=== PATIENT | male | born 1960 | race Caucasian/White ===

== ENCOUNTER 2019-08-31 08:35 | Inpatient (IN) | payer OTHER ==
[2019-08-31] MEDS ORDERED: SODIUM CHLORIDE 0.9% 1,000 ML IV STA (08:54)
[2019-08-31 09:16] LABS: Basophils # (A) 0.1 k/uL (0-0.2); Basophils % (A) 1 %; Eosinophils # (A) 0.1 k/uL (0-0.7); Eosinophils % (A) 1 %; HCT 42.9 % (39.0-53.0); HGB 14.2 gm/dL (13.0-17.5); Lymphocytes # (A) 1.6 k/uL (1.0-4.8); Lymphocytes % (A) 20 %; MCH 30.4 pg (25.0-35.0); Mean Platelet Volume 7.3; Monocytes # (A) 0.5 k/uL (0-1.0); Monocytes % (A) 7 %; Neutrophils # (A) 5.7 k/uL (1.3-7.7); Neutrophils % (A) 69 %; Platelet Count 224 k/uL (150-450); RBC 4.66 m/uL (4.30-5.90); RDW 12.6 % (11.5-15.5); WBC 8.2 k/uL (3.8-10.6)
[2019-08-31 09:17] LABS: Glucose,Whole Blood 470 mg/dL (75-99)
--- NOTE | 2019-08-31 09:21 | ED ---
General Adult HPI - General Chief complaint: Neuro Symptoms/Deficit Stated complaint: poss stroke Time Seen by Provider: 08/31/19 08:40 Source: patient, family, RN notes reviewed, old records reviewed Mode of arrival: wheelchair - History of Present Illness Initial comments: This is a 59-year-old male who presents emergency Department with a past medical history significant for diabetes hypertension and multiple strokes according to the daughter. The patient is unable to give any history at this time. Daughter states on Saturday his speech was slurred when she talked to mom the phone but today when she got there he was barely speaking and all and he seemed altered today so she 1 over the house and he clearly was altered mentally to them so she brought him into the emergency department. Patient was able to ambulate to the car she states a little more of a shuffle today than his normal walk but he always has right-sided weakness but she did not note any increased weakness. She did not note any facial droop. She was unable to tell if he had any more slurred speech today because he barely said anything to her today. Her biggest complaint today is he's not understanding things any significantly altered from his baseline. - Related Data Allergies Allergy/AdvReac Type Severity Reaction Status Date / Time No Known Allergies Allergy Verified 08/31/19 08:38 Review of Systems ROS Statement: Those systems with pertinent positive or pertinent negative responses have been documented in the HPI. ROS Other: All systems not noted in ROS Statement are negative. Past Medical History Past Medical History: CVA/TIA, Diabetes Mellitus, Hyperlipidemia, Hypertension History of Any Multi-Drug Resistant Organisms: None Reported Past Surgical History: Unable to Obtain Past Psychological History: No Psychological Hx Reported, Bipolar, PTSD Smoking Status: Current every day smoker Past Alcohol Use History: Occasional Past Drug Use History: None Reported General Exam - General Exam Comments Initial Comments: GENERAL: Patient is well-developed and well-nourished. Patient is nontoxic and well- hydrated and is in mild distress. ENT: Neck is soft and supple. No significant lymphadenopathy is noted. Oropharynx is clear. Moist mucous membranes. Neck has full range of motion without eliciting any pain. EYES: The sclera were anicteric and conjunctiva were pink and moist. PULMONARY: Unlabored respirations. Good breath sounds bilaterally. No audible rales rhonchi or wheezing was noted. CARDIOVASCULAR: There is a regular rate and rhythm without any murmurs gallops or rubs. ABDOMEN: Soft and nontender with normal bowel sounds. SKIN: Skin is clear with no lesions or rashes and otherwise unremarkable. NEUROLOGIC: Patient is alert and oriented 0. Patient is unable to follow commands some unable to assess his cranial nerves or his strength of his extremities. I cannot assess drift or any cerebellar functioning. MUSCULOSKELETAL: Normal extremities with adequate strength and full range of motion. No lower extremity swelling or edema. No calf tenderness. LYMPHATICS: No significant lymphadenopathy is noted PSYCHIATRIC: Unable to assess Course Vital Signs 08/31/19 08/31/19 08:39 09:45 Temperature 98 F 98.9 F Pulse Rate 79 74 Respiratory 18 18 Rate Blood Pressure 122/81 130/82 O2 Sat by Pulse 99 98 Oximetry Medical Decision Making - Medical Decision Making EKG shows normal sinus rhythm at 75 bpm MO interval 144 QRS is 90 QT interval 422 QTC is 471. EKG shows no ST segment elevation or depression. CT of the brain shows a cute to subacute area of infarct in the left parietal occipital region. I spoke with Dr. Doyle he agreed to admit the patient I admitted the patient I wrote admitting orders. TPA was not given because the patient had symptoms beginning as early as Saturday. This was per the daughter's history. - Lab Data Result diagrams: 08/31/19 09:01 08/31/19 09:01 Lab Results 08/31/19 08/31/19 08/31/19 Range/Units 08:57 09:01 09:01 WBC 8.2 (3.8-10.6) k/uL RBC 4.66 (4.30-5.90) m/uL Hgb 14.2 (13.0-17.5) gm/dL Hct 42.9 (39.0-53.0) % MCV 92.0 (80.0-100.0) fL MCH 30.4 (25.0-35.0) pg MCHC 33.0 (31.0-37.0) g/dL RDW 12.6 (11.5-15.5) % Plt Count 224 (150-450) k/uL Neutrophils % 69 % Lymphocytes % 20 % Monocytes % 7 % Eosinophils % 1 % Basophils % 1 % Neutrophils # 5.7 (1.3-7.7) k/uL Lymphocytes # 1.6 (1.0-4.8) k/uL Monocytes # 0.5 (0-1.0) k/uL Eosinophils # 0.1 (0-0.7) k/uL Basophils # 0.1 (0-0.2) k/uL PT (9.0-12.0) sec INR (<1.2) APTT (22.0-30.0) sec Sodium 137 (137-145) mmol/L Potassium 3.9 (3.5-5.1) mmol/L Chloride 98 (98-107) mmol/L Carbon Dioxide 26 (22-30) mmol/L Anion Gap 13 mmol/L BUN 18 (9-20) mg/dL Creatinine 1.09 (0.66-1.25) mg/dL Est GFR (CKD-EPI)AfAm 86 (>60 ml/min/1.73 sqM) Est GFR (CKD-EPI)NonAf 75 (>60 ml/min/1.73 sqM) Glucose 493 H (74-99) mg/dL POC Glucose (mg/dL) 470 H (75-99) mg/dL POC Glu Director Mba ID Pascal, Neli Plasma Lactic Acid Rad (0.7-2.0) mmol/L Calcium 10.0 (8.4-10.2) mg/dL Total Bilirubin 1.5 H (0.2-1.3) mg/dL AST 20 (17-59) U/L ALT 18 L (21-72) U/L Alkaline Phosphatase 121 (38-126) U/L Troponin I (0.000-0.034) ng/mL Total Protein 7.8 (6.3-8.2) g/dL Albumin 4.5 (3.5-5.0) g/dL Acetone, Qual Negative (Negative) 08/31/19 08/31/19 08/31/19 Range/Units 09:01 09:01 09:01 WBC (3.8-10.6) k/uL RBC (4.30-5.90) m/uL Hgb (13.0-17.5) gm/dL Hct (39.0-53.0) % MCV (80.0-100.0) fL MCH (25.0-35.0) pg MCHC (31.0-37.0) g/dL RDW (11.5-15.5) % Plt Count (150-450) k/uL Neutrophils % % Lymphocytes % % Monocytes % % Eosinophils % % Basophils % % Neutrophils # (1.3-7.7) k/uL Lymphocytes # (1.0-4.8) k/uL Monocytes # (0-1.0) k/uL Eosinophils # (0-0.7) k/uL Basophils # (0-0.2) k/uL PT 10.4 (9.0-12.0) sec INR 1.0 (<1.2) APTT 23.2 (22.0-30.0) sec Sodium (137-145) mmol/L Potassium (3.5-5.1) mmol/L Chloride (98-107) mmol/L Carbon Dioxide (22-30) mmol/L Anion Gap mmol/L BUN (9-20) mg/dL Creatinine (0.66-1.25) mg/dL Est GFR (CKD-EPI)AfAm (>60 ml/min/1.73 sqM) Est GFR (CKD-EPI)NonAf (>60 ml/min/1.73 sqM) Glucose (74-99) mg/dL POC Glucose (mg/dL) (75-99) mg/dL POC Glu Director Mba ID Plasma Lactic Acid Rad 1.5 (0.7-2.0) mmol/L Calcium (8.4-10.2) mg/dL Total Bilirubin (0.2-1.3) mg/dL AST (17-59) U/L ALT (21-72) U/L Alkaline Phosphatase (38-126) U/L Troponin I <0.012 (0.000-0.034) ng/mL Total Protein (6.3-8.2) g/dL Albumin (3.5-5.0) g/dL Acetone, Qual (Negative) Disposition Clinical Impression: Cerebrovascular accident (CVA), Hyperglycemia Disposition: ADMITTED IP TO THIS HOSP Referrals: Frederic Doyle MD [Primary Care Provider] - 1-2 days Time of Disposition: 10:37
[2019-08-31 09:24] LABS: Partial Thromboplastin Time 23.2 sec (22.0-30.0); Prothrombin Time 10.4 sec (9.0-12.0)
[2019-08-31 09:34] LABS: ALT 18 U/L (21-72); AST 20 U/L (17-59); African American GFR (CKD) 86 (>60 ml/min/1.73 sqM); Albumin 4.5 g/dL (3.5-5.0); Alkaline Phosphatase 121 U/L (38-126); Anion Gap 13 mmol/L; Blood Urea Nitrogen 18 mg/dL (9-20); Carbon Dioxide 26 mmol/L (22-30); Chloride 98 mmol/L (98-107); Glucose 493 mg/dL (74-99); Non-African American GFR(CKD) 75 (>60 ml/min/1.73 sqM); Potassium 3.9 mmol/L (3.5-5.1); Sodium 137 mmol/L (137-145); Total Bilirubin 1.5 mg/dL (0.2-1.3); Total Protein 7.8 g/dL (6.3-8.2)
--- NOTE | 2019-08-31 09:43 | XR ---
EXAMINATION TYPE: XR chest 2V DATE OF EXAM: 08/31/2019 COMPARISON: NONE HISTORY: Altered mental status TECHNIQUE: Frontal and lateral views of the chest are obtained. FINDINGS: There is no focal air space opacity, pleural effusion, or pneumothorax seen. There is a ca rdiac loop recorder present. The cardiac silhouette size is within normal limits. Old healed left rib fractures are seen. There is mild diffuse osseous demineralization. IMPRESSION: No acute cardiopulmonary process.
--- NOTE | 2019-08-31 09:46 | CT ---
EXAMINATION TYPE: CT brain wo con DATE OF EXAM: 08/31/2019 COMPARISON: NONE HISTORY: Altered mental status. CT DLP: 1099.4 mGycm. Automated Exposure Control for Dose Reduction was Utilized. TECHNIQUE: CT scan of the head is performed without contrast. FINDINGS: There is no acute intracranial hemorrhage, mass effect, or midline shift identified. A we dge-shaped area of hypoattenuation at the left parietal-occipital junction on image 37 in the [facility] ed zone is slightly hazy and could be acute to subacute There are multiple areas of hypoattenuation, the largest in the left frontal lobe involving both chaney and white matter indicative of prior infarct . Right frontal hypoattenuation is smaller as is a watershed parietal-occipital hypoattenuation on th e right and occipital hypoattenuation in the left. There is also some temporal involvement on the rig ht. No suspicious extra-axial fluid collection. The ventricles and sulci are prominent compatible wi th age-related volume loss. The globes are intact and the visualized sinuses are clear. IMPRESSION: Watershed infarct in the left parietal-occipital region on image 37 is age indeterminant, acute to valdez bacute. Additional multifocal bilateral infarcts bilaterally appear old on CT approaching CSF attenua tion.
[2019-08-31] MEDS: ASPIRIN 300 MG SUPP RECTAL STA ×2 (10:54→10:58)
[2019-08-31] MEDS ORDERED: ASPIRIN 325 MG TAB PO STA (11:01)
[2019-08-31] MEDS ORDERED: LIDOCAINE URO-JET JELLY 2% 5 ML KIT URETHRAL ONE (11:10)
[2019-08-31 11:18] LABS: Glucose,Whole Blood 394 mg/dL (75-99)
[2019-08-31 12:07] LABS: Glucose,Whole Blood 388 mg/dL (75-99)
[2019-08-31 12:24] LABS: Appearance,Urine Clear (Clear); Bilirubin,Urine Negative (Negative); Blood,Urine Negative (Negative); Color,Urine Yellow; Glucose,Urine (UA) 4+ (Negative); Ketones,Urine Trace (Negative); Leukocyte Esterase,Urine Negative (Negative); Nitrite,Urine Negative (Negative); PH, Urine 6.5 (5.0-8.0); Protein,Urine Negative (Negative); Specific Gravity,Urine 1.033 (1.001-1.035)
[2019-08-31 12:38] LABS: Amphetamine Screen,Urine Not Detected (NotDetected); Barbiturate Screen,Urine Not Detected (NotDetected); Benzodiazepines Screen,Urine Not Detected (NotDetected); Cocaine Screen,Urine Not Detected (NotDetected); Methadone Screen, Urine Not Detected (NotDetected); Opiate Screen,Urine Not Detected (NotDetected); Oxycodone Screen, Urine Not Detected (NotDetected); Phencyclidine Screen,Urine Not Detected (NotDetected); Tricyclic Antidepressant,Urine Not Detected (NotDetected); Urn Cannabinoid Scrn Not Detected (NotDetected)
[2019-08-31 13:03] LABS: Glucose,Whole Blood 414 mg/dL (75-99)
[2019-08-31] MEDS: INSULIN ASPART (NovoLOG) 100 UNIT/ML VIAL SQ SCH ×3 (13:18→20:56)
[2019-08-31] MEDS ORDERED: levETIRAcetam 500 MG TAB PO STA (13:23)
[2019-08-31] MEDS: DIVALPROEX 250 MG TABLET.DR PO SCH ×2 (13:29→20:54)
[2019-08-31 17:15] LABS: Glucose,Whole Blood 212 mg/dL (75-99)
[2019-08-31 20:22] LABS: Glucose,Whole Blood 186 mg/dL (75-99)
[2019-08-31] MEDS: OLANZapine 10 MG TAB PO SCH ×2 (20:54→20:56)
[2019-08-31] MEDS: ATORVASTATIN 80 MG TAB PO SCH ×2 (20:54→20:56)
[2019-08-31] MEDS: levETIRAcetam 500 MG TAB PO SCH (20:54)
[2019-08-31] MEDS: INSULIN DETEMIR (LEVEMIR) 100 UNIT/ML SYR SQ SCH (20:55)
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
--- NOTE | 2019-08-31 21:23 | P.CNNES ---
History of Present Illness Consult date: 08/31/19 Reason for Consult: Stroke Chief complaint: AMS History of Present Illness: HISTORY OF PRESENT ILLNESS: Thank you for allowing me to evaluate Mr. Shakeel Atkinson. Mr. Atkinson is a 59 year-old R-handed man with PMHx of stroke (since about 10 years ago, has had multiple), diabetes, HLD, HTN, bipolar, PTSD, who presents to [facility] for altered mental status. Patient lives by himself. He rec ently moved to [place] after from his second , and daughter has been helping the patient. She came by his place as patient had an appointment at Dr. Doyle's office. When she came, patient was taking a very long time to get ready, doing the same thing over and over again, and his speech had gotten worse. Daughter does not know what kind of symptoms patient had with his previous strokes because his second never told her about any of his hospitalizations. She says, however, that Dr. Doyle's office should have records from patient's previous hospitalizations. Daughter states that the last time she had seen patient was on Saturday, and at the time, she noticed some slurred speech but she thought it was because he was not able to go to his speech therapy sessions last week. Daughter knows that patient has more R-sided weakness than left side, and patient was able to walk to the car although he seemed to have some shuffling. As far as daughter is aware, patient had not complained of any recent sickness, fever, headache, diarrhea, vision issues. Patient is not able to provide much history unfortunately as he only intermittently repeats and just says "yea" PAST MEDICAL HISTORY: Stroke (since about 10 years ago, has had multiple), diabetes, HLD, HTN, bipolar, PTSD PAST SURGICAL HISTORY: Unknown at this time HOME MEDICATIONS: Multivitamins, sertraline, pantoprazole, olanzapine, insulin, keppra, midodrine, folic acid, fenofibrate, depakote, atorvastatin, aspirin ALLERGIES: NKDA SOCIAL HISTORY: Current everyday smoker. Occasional EtOH use. REVIEW OF SYSTEMS: The 14 systems are reviewed and no additional points are identified compared to the review of systems documented history and physical PHYSICAL EXAMINATION: VITAL SIGNS: T 97.6 HR 78 RR 18 BP 113/58 O2 sat 99% on RA GEN.: NAD, mixed receptive and expressive aphasia HEENT: NCAT, sclera without icterus NECK: Supple SKIN AND EXTREMITIES: Warm to touch, no edema NEURO: MENTAL STATUS: Patient alert and oriented to self, place. Unable to understand other orientation questions. Severe dysarthria, repeats often. No right and left disorientation, neglect. CRANIAL NERVES II THROUGH XII: II: Pupils are equal and reactive to light symmetrically. Blinks to threat bilaterally III, IV, : No ptosis. Extraocular movements full. No nystagmus. VII. R facial droop (from previous stroke per daughter) IX, X: Symmetric palate elevation. XI: Shoulder shrug intact. XII: Tongue midline without fasciculation or atrophy. MOTOR: Normal bulk/tone. No pronator drift or tremor. At least antigravity with no drift in b/l UE. RLE with mild drift SENSORY: does not grimace to noxious stimuli in all 4 extremities REFLEXES: 2+ throughout. Toes are downgoing. No clonus. COORDINATION/GAIT: unable to assess DIAGNOSTIC TESTING: LABORATORY: WBC 8.2 Hgb 14.2 Platelet 224 INR 1.0 Na 137 K 3.9 Cl 98 CO2 26 BUN 18 Cr 1.09 Glucose 493 AST 20 ALT 18 AlkPhos 121 Trop <0.012 TSH 1.370 Depaktoe level 15.4 urine toxicology negative IMAGING: CT Head w/o contrast 08/31/19: Watershed infarct in L parietal-occipital region, age indeterminant, acute to subacute. Additional multifocal bilateral infarcts appear old on CT ASSESSMENT: 59 year-old R-handed man with PMHx of stroke (since about 10 years ago, has had multiple), diabetes, HLD, HTN, bipolar, PTSD, who presents to [facility] for altered mental status. At this time, we do not know patient's previous stroke symptoms to compare today's presentation to, but CT Head showing multiple infarcts bilaterally along with possible [id number] watershed infarct. Patient had been only on ASA at home. Daughter states that no one was able to tell them what his stroke etiology was, but on this admission, patient found with hyperglycemia of 493, which most definitely can still cause multifocal bi lateral infarcts if not managed appropriately. Recommend stroke work-up and management. RECOMMENDATIONS: 1. MRI brain without contrast 2. CTA of head and neck with and without contrast 3. Transthoracic echocardiogram 4. Cardiac monitoring 5. Permissive HTN for 24-48 hours SBP >220. Give labetalol 10mg IV q1h PRN for SBP >220 DBP >110 6. ASA 81mg qday 7. Atorvastatin 80mg qhs 8. Labs: A1C, TSH, FLP 9. PT/OT/ST per protocol 10. Discussed with patient about stroke prevention guidelines. Medication compliance, hypertension/diabetes control, lifestyle changes including no smoking, drinking in moderation, losing weight, exercising, eating healthier 11. Neurology will continue to follow 12. Patient needs to follow up with neurologist as outpatient with her 1-2 weeks of discharge Past Medical History Past Medical History: CVA/TIA, Diabetes Mellitus, Hyperlipidemia, Hypertension History of Any Multi-Drug Resistant Organisms: None Reported Past Surgical History: Unable to Obtain Past Psychological History: No Psychological Hx Reported, Bipolar, PTSD Smoking Status: Current every day smoker Past Alcohol Use History: Occasional Past Drug Use History: None Reported - Past Family History Father Family Medical History: Coronary Artery Disease (CAD), CVA/TIA, Diabetes Mellitus, Myocardial Infarction (PR) Additional Family Medical History / Comment(s): Father of a PR at the age of 71 yrs. He has CABG and coronary stents. Mother Family Medical History: COPD Additional Family Medical History / Comment(s): Mother was an alcoholic and a smoker. She of copd at the age of 61yrs. Medications and Allergies Home Medications Medication Instructions Recorded Confirmed Type Aspirin EC [Ecotrin Low Dose] 81 mg PO DAILY 08/31/19 08/31/19 History Atorvastatin [Lipitor] 80 mg PO HS 08/31/19 08/31/19 History Divalproex Sodium [Depakote] 250 mg PO TID 08/31/19 08/31/19 History Fenofibrate Nanocrystallized 145 mg PO DAILY 08/31/19 08/31/19 History [Fenofibrate] Folic Acid 1 mg PO DAILY 08/31/19 08/31/19 History Insulin Glargine,Hum.rec.anlog 47 unit SQ HS 08/31/19 08/31/19 History [Chadd Mckeon] Insulin Regular, Human [NovoLIN R] See Protocol SQ AC-TID 08/31/19 08/31/19 History Midodrine HCl [ProAmantine] 2.5 mg PO BID@0600,1200 08/31/19 08/31/19 History Multivitamins, Thera [Multivitamin 1 tab PO DAILY 08/31/19 08/31/19 History (formulary)] OLANZapine [ZyPREXA] 5 mg PO DAILY 08/31/19 08/31/19 History OLANZapine [ZyPREXA] 10 mg PO HS 08/31/19 08/31/19 History Pantoprazole Sodium [Protonix] 40 mg PO DAILY 08/31/19 08/31/19 History Sertraline [Zoloft] 50 mg PO DAILY 08/31/19 08/31/19 History levETIRAcetam [Keppra] 1,500 mg PO BID 08/31/19 08/31/19 History Allergies Allergy/AdvReac Type Severity Reaction Status Date / Time No Known Allergies Allergy Verified 08/31/19 10:48 Physical Examination - Vital Signs Vital Signs: Vital Signs Temp Pulse Resp BP Pulse Ox 08/31/19 11:06 98.8 F 75 18 130/79 100 08/31/19 09:45 98.9 F 74 18 130/82 98 08/31/19 08:39 98 F 79 18 122/81 99 Intake and Output 08/30/19 08/31/19 08/31/19 22:59 06:59 14:59 Other: Weight 69.853 kg Results - Laboratory Findings CBC and BMP: 08/31/19 09:01 08/31/19 09:01 Abnormal Lab Findings: Abnormal Labs 08/31/19 08/31/19 08/31/19 08:57 09:01 11:17 Glucose 493 H POC Glucose (mg/dL) 470 H 394 H Total Bilirubin 1.5 H ALT 18 L
--- NOTE | 2019-08-31 23:08 | CT ---
EXAMINATION TYPE: CT angio head neck DATE OF EXAM: 08/31/2019 COMPARISON: None HISTORY: cva CT DLP: 387.8 mGycm Automated exposure control for dose reduction was used. CONTRAST: Performed with IV Contrast, patient injected with 65cc mL of Isovue 370. There are 3-D post processed images. FINDINGS: There is normal branching pattern of the great vessels on the aortic arch. There is bilateral arteria l flow in the subclavian arteries. There is arterial flow in the common internal and external carotid arteries bilaterally. There is moderate plaque at the left carotid artery bifurcation with approxima te 30% narrowing of the proximal left internal carotid artery. There is moderate plaque at the right carotid artery bifurcation and similar 30% stenosis proximal right internal carotid artery. External carotid arteries appear fairly normal. There is arterial flow in both vertebral arteries. Right verte bral artery is much larger than the left. I see no evidence of vertebral or carotid artery aneurysm o r dissection. The basilar artery fills mostly from the right side. There is arterial flow in the anterior middle and posterior cerebral arteries bilaterally. I see no e vidence of intracranial aneurysm or neovascularity. There is normal contrast opacification of the sebastian ous sinuses. There is no mass effect. I see no evidence of intracranial hemodynamic stenosis. IMPRESSION: There is atherosclerotic plaque formation and approximate 30% stenosis in both proximal internal burger tid arteries. No evidence of hemodynamic stenosis. Diminutive left vertebral artery. No intracranial angiographic abnormality.
[2019-09-01 01:40] LABS: Hemoglobin A1C 15.7 % (4.0-6.0)
[2019-09-01 06:04] LABS: Glucose,Whole Blood 217 mg/dL (75-99)
[2019-09-01] MEDS: MIDODRINE 5 MG TAB PO SCH ×2 (07:05→16:28)
[2019-09-01] MEDS: PANTOPRAZOLE 40 MG TABLET PO SCH (07:06)
[2019-09-01] MEDS: INSULIN ASPART (NovoLOG) 100 UNIT/ML VIAL SQ SCH ×4 (07:06→22:22)
[2019-09-01 07:31] LABS: Cholesterol 141 mg/dL (<200); HDL Cholesterol 29 mg/dL (40-60); LDL Cholesterol,Calculated 63 mg/dL (0-99); Triglycerides 247 mg/dL (<150)
[2019-09-01] MEDS: MULTIVITAMINS, THERA 1 EACH TAB PO SCH (08:23)
[2019-09-01] MEDS: FENOFIBRATE 160 MG TAB PO SCH (08:23)
[2019-09-01] MEDS: ASPIRIN 81 MG PO SCH (08:23)
[2019-09-01] MEDS: levETIRAcetam 500 MG TAB PO SCH ×2 (08:23→22:21)
[2019-09-01] MEDS: FOLIC ACID 1 MG TAB PO SCH (08:23)
[2019-09-01] MEDS: SERTRALINE 50 MG TAB PO SCH (08:23)
[2019-09-01] MEDS: DIVALPROEX 250 MG TABLET.DR PO SCH ×3 (08:24→22:22)
[2019-09-01] MEDS: OLANZapine 5 MG TAB PO SCH (08:25)
[2019-09-01] MEDS ORDERED: ASPIRIN 325 MG TAB PO SCH (09:00)
--- NOTE | 2019-09-01 11:00 | ECHOF ---
Referral Reason:stroke MEASUREMENTS -------- HEIGHT: 160.0 cm WEIGHT: 67.6 kg BP: 115/89 RVIDd: 2.9 cm (< 3.3) IVSd: 1.3 cm (0.6 - 1.1) LVIDd: 4.3 cm (3.9 - 5.3) LVPWd: 1.2 cm (0.6 - 1.1) IVSs: 1.4 cm LVIDs: 3.1 cm LVPWs: 1.7 cm LA Diam: 3.8 cm (2.7 - 3.8) Ao Diam: 2.6 cm (2.0 - 3.7) AV Cusp: 1.1 cm (1.5 - 2.6) LA Diam: 4.1 cm (2.7 - 3.8) MV EXCURSION: 13.341 mm (> 18.000) MV EF SLOPE: 55 mm/s (70 - 150) EPSS: 1.4 cm MV E Jeremias: 0.76 m/s MV DecT: 239 ms MV A Jeremias: 1.06 m/s MV E/A Ratio: 0.72 RAP: 5.00 mmHg RVSP: 21.83 mmHg FINDINGS -------- Sinus rhythm. This was a technically good study. The left ventricular size is normal. There is mild concentric left ventricular hypertrophy. Overa ll left ventricular systolic function is normal with, an EF between 55 - 60 %. The right ventricle is normal in size. The left atrial size is normal. The right atrial size is normal. Contrast study was performed with 2 iv injections of 8 ccs of agitated normal saline, at rest, and po st-Valsalva. There is mild aortic valve sclerosis. There is no evidence of aortic regurgitation. Mild mitral annular calcification present. Mild mitral regurgitation is present. Mild tricuspid regurgitation present. Right ventricular systolic pressure is normal at < 35 mmHg. There is no evidence of pulmonary hypertension. There is no pulmonic regurgitation present. The aortic root size is normal. There is no pericardial effusion. CONCLUSIONS -------- 1. Sinus rhythm. 2. This was a technically good study. 3. The left ventricular size is normal. 4. There is mild concentric left ventricular hypertrophy. 5. Overall left ventricular systolic function is normal with, an EF between 55 - 60 %. 6. The right ventricle is normal in size. 7. The left atrial size is normal. 8. The right atrial size is normal. 9. Contrast study was performed with 2 iv injections of 8 ccs of agitated normal saline, at rest, and post-Valsalva. 10. There is mild aortic valve sclerosis. 11. Mild mitral annular calcification present. 12. Mild mitral regurgitation is present. 13. Mild tricuspid regurgitation present. 14. Right ventricular systolic pressure is normal at < 35 mmHg. 15. There is no evidence of pulmonary hypertension. 16. There is no pulmonic regurgitation present. 17. The aortic root size is normal. 18. There is no pericardial effusion. SENIOR ADMINISTRATIVE ASSISTANT: Shawna Goode RDCS
[2019-09-01 11:38] VITALS: BMI 26.4
[2019-09-01 12:07] LABS: Glucose,Whole Blood 120 mg/dL (75-99)
--- NOTE | 2019-09-01 14:18 | P.PN ---
Progress Note - Text Progress Note Date: 09/01/19 SUBJECTIVE/INTERVAL EVENTS: No acute overnight events. Patient is more oriented today and able to answer questions more appropriately. He was having difficulty following commands to show 2 fingers and his thumb, but he's able to do those actions although with time. Patient is still very dysarthric and aphasic, but he's able to repeat. Unable to name at this time. PHYSICAL EXAMINATION: VITAL SIGNS: T 97.6 HR 89 RR 16 BP 111/68 O2 sat 100% on RA GEN.: NAD, mixed receptive and expressive aphasia HEENT: NCAT, sclera without icterus NECK: Supple SKIN AND EXTREMITIES: Warm to touch, no edema NEURO: MENTAL STATUS: Patient alert and oriented to self, place. Unable to understand other orientation questions. Severe dysarthria, repeats often. No right and left disorientation, neglect. CRANIAL NERVES II THROUGH XII: II: Pupils are equal and reactive to light symmetrically. Blinks to threat bilaterally III, IV, : No ptosis. Extraocular movements full. No nystagmus. VII. R facial droop (from previous stroke per daughter) IX, X: Symmetric palate elevation. XI: Shoulder shrug intact. XII: Tongue midline without fasciculation or atrophy. MOTOR: Normal bulk/tone. No pronator drift or tremor. At least antigravity with no drift in b/l UE. RLE with mild drift SENSORY: does not grimace to noxious stimuli in all 4 extremities REFLEXES: 2+ throughout. Toes are downgoing. No clonus. COORDINATION/GAIT: unable to assess DIAGNOSTIC TESTING: LABORATORY: WBC 8.2 Hgb 14.2 Platelet 224 INR 1.0 Na 137 K 3.9 Cl 98 CO2 26 BUN 18 Cr 1.09 Glucose 493 AST 20 ALT 18 AlkPhos 121 Trop <0.012 TSH 1.370 Depaktoe level 15.4 urine toxicology negative Total cholesterol 141 LDL 63 HDL 29 TG 247 A1C 15.7 IMAGING: CT Head w/o contrast 08/31/19: Watershed infarct in L parietal-occipital region, age indeterminant, acute to subacute. Additional multifocal bilateral infarcts appear old on CT CTA Head and Neck w/ contrast 08/31/19: There is atherosclerotic plaque formation in approximate 30% stenosis in both proximal internal carotid arteries. No evidence of hemodynamic stenosis. No intracranial angiographic abnormality. TTE 09/01/19: SR. EF 55-60%. RV, LA, RA, LV sizes are normal. Cardiac Telemetry: No atrial arrhythmia observed since admission ASSESSMENT: 59 year-old R-handed man with PMHx of stroke (since about 10 years ago, has had multiple), diabetes, HLD, HTN, bipolar, PTSD, who presents to [facility] for altered mental status. At this time, we do not know patient's previous st roke symptoms to compare today's presentation to, but CT Head showing multiple infarcts bilaterally along with possible oxkbqzov-bj-ldymn watershed infarct. Patient had been only on ASA at home. Daughter states that no one was able to tell them what his stroke etiology was, but on this admission, patient found with hyperglycemia of 493, which most definitely can still cause multifocal bilateral infarcts if not managed appropriately. Patient's A1C came back at 15.7, and CTA/TTE unremarkable. MRI brain w/o contrast pending. Patient's previous strokes likely due to uncontrolled diabetes. RECOMMENDATIONS: 1. MRI brain without contrast 2. c/w ASA 81mg qday 3. c/w Atorvastatin 80mg qhs 4. Depakote level 15.4. Will change depakote medication to extended release 750mg qday. Will continue the depakote 250mg TID dosing for today and discontinue tomorrow. 5. Routine EEG 6. PT/OT/ST per protocol 7. Discussed with patient about stroke prevention guidelines. Medication compliance, hypertension/diabetes control, lifestyle changes including no smoking, drinking in moderation, losing weight, exercising, eating healthier 8. Neurology will continue to follow 9. Patient needs to follow up with neurologist as outpatient with her 1-2 weeks of discharge
--- NOTE | 2019-09-01 16:57 | P.CONS ---
History of Present Illness - Chief Complaint Gait disturbance - History of Present Illness I had the opportunity to see patient for inpatient rehab consultation with regard to gait disturbance. He was admitted to [facility] August to acute onset right-sided weakness. History of 2 previous strokes with right hemiparesthesias this year. Seen in consultation by Dr. Fraire. Cardiac echo demonstrated concen tric LVH and 55-60% ejection fraction. Chest x-ray negative. Head CT with left parietal-occipital attenuation. Angiogram CT with 30% occlusion right and left internal carotid. Brain MRI report pending. PT reports supervision to modified independent with mobility including gait 100 feet. OT reports supervision for upper dressing and minimal assistance for lower dressing, bathing, toileting and functional mobility. Speech therapy working with aphasia. Previous functional history as elicited from daughter: 59-year-old right-handed white male who is lives in first-floor apartment alone. On disability. Daughter does the laundry and cooking and patient does all heat up his own food. Independent with standing shower and gait with occasional need of standard cane. PMD Dr. Doyle. Smokes a pack a day and occasional drink. Family history mother was a smoker and was COPD. Father with stroke and coronary artery disease. Review of Systems Review of systems: ENT: Denies sneezes or discharge. Eyes: Denies discharge or photophobia. Cardiac: Denies chest pain or palpitation. Pulmonary: Denies cough or shortness of breath. Gastrointestinal: Denies nausea, emesis, constipation, diarrhea. Genitourinary: Denies discharge or frequency. Musculoskeletal: Denies muscle or bone aches. Neurologic: Speech disturbance and right-sided apraxia. Endocrine: Denies shakes or sweats. Oncology: Denies cancers. Dermatologic: Denies rash, itching, pruritus. ALLERGY/immunology: Denies sneezes, rashes. Past Medical History Past Medical History: CVA/TIA, Diabetes Mellitus, Hyperlipidemia, Hypertension Additional Past Medical History / Comment(s): IDDM type II, multiple CVAs with R facial droop, R hand/arm and leg will drag when pt is tired-he originally had dysphagia with peg tube but that has resolved, last seizure 03/25/19. History of Any Multi-Drug Resistant Organisms: None Reported Past Surgical History: Unable to Obtain Additional Past Surgical History / Comment(s): Peg tube and vasectomy Past Anesthesia/Blood Transfusion Reactions: No Reported Reaction Past Psychological History: No Psychological Hx Reported, Bipolar, PTSD Smoking Status: Current every day smoker Past Alcohol Use History: Occasional Past Drug Use History: None Reported - Past Family History Father Family Medical History: Coronary Artery Disease (CAD), CVA/TIA, Diabetes Mellitus, Myocardial Infarction ([place]) Additional Family Medical History / Comment(s): Father of a [place] at the age of 71 yrs. He has CABG and coronary stents. Mother Family Medical History: COPD Additional Family Medical History / Comment(s): Mother was an alcoholic and a smoker. She of copd at the age of 61yrs. Medications and Allergies Home Medications Medication Instructions Recorded Confirmed Type Aspirin EC [Ecotrin Low Dose] 81 mg PO DAILY 08/31/19 08/31/19 History Atorvastatin [Lipitor] 80 mg PO HS 08/31/19 08/31/19 History Divalproex Sodium [Depakote] 250 mg PO TID 08/31/19 08/31/19 History Fenofibrate Nanocrystallized 145 mg PO DAILY 08/31/19 08/31/19 History [Fenofibrate] Folic Acid 1 mg PO DAILY 08/31/19 08/31/19 History Insulin Glargine,Hum.rec.anlog 47 unit SQ HS 08/31/19 08/31/19 History [Chadd Mckeon] Insulin Regular, Human [NovoLIN R] See Protocol SQ AC-TID 08/31/19 08/31/19 History Midodrine HCl [ProAmantine] 2.5 mg PO BID@0600,1200 08/31/19 08/31/19 History Multivitamins, Thera [Multivitamin 1 tab PO DAILY 08/31/19 08/31/19 History (formulary)] OLANZapine [ZyPREXA] 5 mg PO DAILY 08/31/19 08/31/19 History OLANZapine [ZyPREXA] 10 mg PO HS 08/31/19 08/31/19 History Pantoprazole Sodium [Protonix] 40 mg PO DAILY 08/31/19 08/31/19 History Sertraline [Zoloft] 50 mg PO DAILY 08/31/19 08/31/19 History levETIRAcetam [Keppra] 1,500 mg PO BID 08/31/19 08/31/19 History Allergies Allergy/AdvReac Type Severity Reaction Status Date / Time No Known Allergies Allergy Verified 08/31/19 10:48 Physical Exam Vitals: Vital Signs Temp Pulse Resp BP Pulse Ox 09/01/19 12:09 98.2 F 67 16 124/66 98 09/01/19 08:00 98.0 F 74 16 134/73 98 09/01/19 04:00 97.6 F 72 16 115/59 95 09/01/19 00:00 97.9 F 75 18 107/63 96 08/31/19 20:00 98.0 F 82 17 101/59 95 Intake and Output 09/01/19 09/01/19 09/01/19 06:59 14:59 22:59 Intake Total 240 Output Total 450 Balance -210 Intake: Oral 240 Output: Urine 450 Other: Voiding Method Toilet Toilet # Voids 1 Weight 67.6 kg 67.6 kg Skin: Good color, texture, turgor. General: Medium build and comfortable appearance. Head: Normocephalic, atraumatic. Eyes: Symmetric. Pupils equal round. Ears: Symmetric. Hearing within normal limits. Mouth: Clear. Neck: Supple. Carotid without bruit. Cardiac: Regular rate and rhythm. Lungs: Clear anteriorly and posteriorly. Abdomen: Soft active nontender. Extremities: Normal tone. Neurological: Mental status: Cooperative, pleasant, aphasic. Cranial nerves: Symmetric facial tone and trapezius. Motor: Active movement all 4 limbs but with distal weakness right ankle and right hand. Sensation: Intact throughout. DTRs: Symmetric and equal throughout. Mobility: Requires assistance for bed mobility. Results CBC & Chem 7: 08/31/19 09:01 08/31/19 09:01 Labs: Abnormal Lab Results - Last 24 Hours (Table) 08/31/19 08/31/19 08/31/19 Range/Units 09:01 17:14 20:20 POC Glucose (mg/dL) 212 H 186 H (75-99) mg/dL Hemoglobin A1c 15.7 H (4.0-6.0) % Triglycerides (<150) mg/dL HDL Cholesterol (40-60) mg/dL 09/01/19 09/01/19 09/01/19 Range/Units 06:03 06:08 11:46 POC Glucose (mg/dL) 217 H 120 H (75-99) mg/dL Hemoglobin A1c (4.0-6.0) % Triglycerides 247 H (<150) mg/dL HDL Cholesterol 29 L (40-60) mg/dL Assessment and Plan (1) Cerebrovascular accident (CVA) Current Visit: Yes Status: Acute Code(s): I63.9 - CEREBRAL INFARCTION, UNSPECIFIED SNOMED Code(s): 541350789 Plan: Impression: 1. Gait disturbance. 2. Stroke with resultant right hemiparesthesias and aphasia. 3. Hypertension. 4. Dyslipidemia. 5. Diabetes with hyperglycemia. 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 OT documents safety problems although PT documents patient independent with mobility. Have discussed possible inpatient rehab with patient and daughter but we'll follow therapy notes. Safety concerns must be noted by PT and OT. Note rehab unit for today.
--- NOTE | 2019-09-01 16:58 | MR ---
EXAMINATION TYPE: MR brain wo con DATE OF EXAM: 09/01/2019 COMPARISON: CT brain 08/31/2019 HISTORY: AMS, stroke CONTRAST: Performed utilizing 0 mL intravenous Gadavist gadolinium contrast. TECHNIQUE: Multiplanar, multiecho imaging on a 3.0 Sheyla magnet is performed through the brain. Stud y is performed within 24 hours of arrival to the hospital. Exam is limited as the patient crawled out of the unit and fast brain protocol was required. The craniovertebral junction is normal. The pituitary is normal. Diffusion-weighted imaging is performed. Some mild increased signal may be within the cortex within a area of prior infarct. This could be some jah-infarct ischemic changes in the left parietal lobe. There is some increased signal within the left portion of the brainstem. Cerebellum measures approxim ately 0.5 cm in diameter. Ventricles and sulci are prominent for the patient age. There are areas of increased signal on T2-weighted sequences and FLAIR sequences within the watershed regions of the posterior and anterior junctions. Largest area appears to be at the left frontal ruma etal region which may be related to a prior infarct. IMPRESSIONS: 1. There may be some acute ischemic changes in the jah-infarct region in the left parietal lobe incr ease white matter changes are within this region. Some jah-infarct ischemic change is considered. Wh en the patient is stable, follow-up contrast MRI would be recommended. 2. Additional areas of more chronic appearing ischemic change within watershed regions of the left an d right parieto-occipital lobes and within the left frontal parietal regions.
[2019-09-01 17:38] LABS: Glucose,Whole Blood 343 mg/dL (75-99)
[2019-09-01 21:23] LABS: Glucose,Whole Blood 213 mg/dL (75-99)
--- NOTE | 2019-09-01 21:54 | P.PN ---
Subjective Progress Note Date: 09/01/19 Principal diagnosis: The patient is here essentially for acute aphasia which is now resolved. Element of TIA. Appreciate multiple consultants input. He seems to be much more oriented this morning. No voiding difficulties. MRI is pending for today. Objective - Vital Signs Vital signs: Vital Signs Temp 97 F L 09/01/19 19:57 Pulse 81 09/01/19 19:57 Resp 14 09/01/19 19:57 BP 118/68 09/01/19 19:57 Pulse Ox 97 09/01/19 19:57 Intake & Output 09/01/19 09/01/19 09/02/19 06:59 18:59 06:59 Intake Total 480 240 360 Output Total 900 Balance 480 -660 360 Weight 67.6 kg 67.6 kg Intake: Oral 480 240 360 Output: Urine 900 Other: Voiding Method Toilet Toilet # Voids 1 - Constitutional General appearance: Present: average body habitus - EENT Eyes: Present: abnormal pupil - Neck Neck: Absent: lymphadenopathy - Respiratory Respiratory: bilateral: CTA - Cardiovascular Rhythm: regular Heart sounds: normal: S1, S2 Abnormal Heart Sounds: Absent: S3 Gallop - Gastrointestinal General gastrointestinal: Present: soft. Absent: tenderness - Musculoskeletal Musculoskeletal: Present: generalized weakness - Labs CBC & Chem 7: 08/31/19 09:01 08/31/19 09:01 Labs: Abnormal Lab Results - Last 24 Hours (Table) 08/31/19 09/01/19 09/01/19 Range/Units 09:01 06:03 06:08 POC Glucose (mg/dL) 217 H (75-99) mg/dL Hemoglobin A1c 15.7 H (4.0-6.0) % Triglycerides 247 H (<150) mg/dL HDL Cholesterol 29 L (40-60) mg/dL 09/01/19 09/01/19 09/01/19 Range/Units 11:46 17:18 21:08 POC Glucose (mg/dL) 120 H 343 H 213 H (75-99) mg/dL Hemoglobin A1c (4.0-6.0) % Triglycerides (<150) mg/dL HDL Cholesterol (40-60) mg/dL Assessment and Plan (1) Depressed Current Visit: Yes Status: Acute Code(s): F32.9 - MAJOR DEPRESSIVE DISORDER, SINGLE EPISODE, UNSPECIFIED SNOMED Code(s): 93562718 (2) Cerebrovascular accident (CVA) Current Visit: Yes Status: Acute Code(s): I63.9 - CEREBRAL INFARCTION, UNSPECIFIED SNOMED Code(s): 173205361 (3) Hyperglycemia Current Visit: Yes Status: Acute Code(s): R73.9 - HYPERGLYCEMIA, UNSPECIFIED SNOMED Code(s): 90954813 Plan: Appreciate neurology input with input from rehab. Await MRI later today. See orders otherwise Time with Patient: Less than 30
[2019-09-01] MEDS: ATORVASTATIN 80 MG TAB PO SCH (22:21)
[2019-09-01] MEDS: INSULIN DETEMIR (LEVEMIR) 100 UNIT/ML SYR SQ SCH (22:21)
[2019-09-02 06:07] LABS: Glucose,Whole Blood 124 mg/dL (75-99)
[2019-09-02] MEDS: INSULIN ASPART (NovoLOG) 100 UNIT/ML VIAL SQ SCH ×4 (06:32→21:40)
[2019-09-02] MEDS: MIDODRINE 5 MG TAB PO SCH ×2 (06:42→12:45)
[2019-09-02] MEDS: PANTOPRAZOLE 40 MG TABLET PO SCH (06:42)
[2019-09-02] MEDS: ACETAMINOPHEN TAB 325 MG TAB PO PRN ×2 (06:43→21:39)
--- NOTE | 2019-09-02 08:25 | EEG ---
ELECTROENCEPHALOGRAM REPORT PROCEDURE DATE: 09/01/2019 ELECTROENCEPHALOGRAM (EEG) REPORT: TECHNIQUE: A routine 18 channel EEG was performed with video using the 10-20 electrode placement system. HISTORY: The patient brought to the emergency room after his daughter noticed that he was having difficulty speaking. Patient was also noted to have right-sided weakness. CURRENT MEDICATIONS: Unknown. STUDY DURATION: 20 minutes. FINDINGS: BACKGROUND: The background activity consisted of unsustained 5-6 hertz rhythmic waveforms. ACTIVATION: Hyperventilation: Not performed. Photic stimulation: Mild symmetric driving seen. Sleep: Occasional stage II sleep noted. ABNORMALITIES: 1. Frequent moderate voltage sharp waves were seen over the left frontotemporal region, F7 and T3. 2. Diffuse synchronous and asynchronous 3-5 hertz slow wave activity was seen with greater focality over the left frontotemporal region. 3. The findings mentioned in numbers 1 and 2 had spread to the left frontal central region/volume conduction to the left frontal central region. IMPRESSION: Abnormal EEG. The sharp waves seen over the left frontotemporal region are epileptiform in nature. The diffuse theta delta range slowing with greater focality of the left frontotemporal region is not epileptiform in nature. These findings indicate the presence of an epileptiform focus involving the left frontotemporal region and can be seen with the presence of a structural abnormality of epileptiform origin involving the corresponding region. These findings also indicate moderate diffuse cerebral dysfunction with greater focal involvement of the left frontotemporal region. MMODL / IJN: [id number] / MTDD
[2019-09-02] MEDS: ASPIRIN 81 MG PO SCH (08:29)
[2019-09-02] MEDS: FENOFIBRATE 160 MG TAB PO SCH (08:29)
[2019-09-02] MEDS: MULTIVITAMINS, THERA 1 EACH TAB PO SCH (08:30)
[2019-09-02] MEDS: DIVALPROEX ER 250 MG TAB.ER.24H PO SCH (08:30)
[2019-09-02] MEDS: levETIRAcetam 500 MG TAB PO SCH ×2 (08:30→21:39)
[2019-09-02] MEDS: SERTRALINE 50 MG TAB PO SCH (08:30)
[2019-09-02] MEDS: FOLIC ACID 1 MG TAB PO SCH (08:30)
[2019-09-02] MEDS: OLANZapine 5 MG TAB PO SCH (08:31)
--- NOTE | 2019-09-02 08:42 | P.DS ---
Providers Date of admission: 08/31/19 10:39 Attending physician: Frederic Doyle Consults: 08/31/19 10:40 Consult Physician Routine Consulting Provider: Magdalena Fraire Reason/Comments: CVA Do you want consulting provider notified?: Yes 09/01/19 14:00 Consult Physician Routine Consulting Provider: Chandler Ellison Consult Reason/Comments: inpatient rehab Do you want consulting provider notified?: Yes Primary care physician: Frederic Doyle - Discharge Diagnosis(es) (1) Depressed Current Visit: Yes Status: Acute (2) Cerebrovascular accident (CVA) Current Visit: Yes Status: Acute (3) Hyperglycemia Current Visit: Yes Status: Acute Hospital Course: The patient was essentially admitted for CVA. We will discharge to rehab today. Diabetes is been fairly well-controlled. Discussion tobacco cessation. The patient is now speaking clearly without significant aphasia. Question element of TIA at that point. Patient Condition at Discharge: Fair Plan - Discharge Summary Discharge Rx Participant: No New Discharge Prescriptions: No Action Multivitamins, Thera [Multivitamin (formulary)] 1 tab PO DAILY Sertraline [Zoloft] 50 mg PO DAILY Pantoprazole Sodium [Protonix] 40 mg PO DAILY OLANZapine [ZyPREXA] 10 mg PO HS Insulin Glargine,Hum.rec.anlog [Chadd Mckeon] 47 unit SQ HS OLANZapine [ZyPREXA] 5 mg PO DAILY levETIRAcetam [Keppra] 1,500 mg PO BID Insulin Regular, Human [NovoLIN R] See Protocol SQ AC-TID Midodrine HCl [ProAmantine] 2.5 mg PO BID@0600,1200 Folic Acid 1 mg PO DAILY Fenofibrate Nanocrystallized [Fenofibrate] 145 mg PO DAILY Divalproex Sodium [Depakote] 250 mg PO TID Atorvastatin [Lipitor] 80 mg PO HS Aspirin EC [Ecotrin Low Dose] 81 mg PO DAILY Discharge Medication List Aspirin EC [Ecotrin Low Dose] 81 mg PO DAILY 08/31/19 [History] Atorvastatin [Lipitor] 80 mg PO HS 08/31/19 [History] Divalproex Sodium [Depakote] 250 mg PO TID 08/31/19 [History] Fenofibrate Nanocrystallized [Fenofibrate] 145 mg PO DAILY 08/31/19 [History] Folic Acid 1 mg PO DAILY 08/31/19 [History] Insulin Glargine,Hum.rec.anlog [Chadd Mckeon] 47 unit SQ HS 08/31/19 [History] Insulin Regular, Human [NovoLIN R] See Protocol SQ AC-TID 08/31/19 [History] Midodrine HCl [ProAmantine] 2.5 mg PO BID@0600,1200 08/31/19 [History] Multivitamins, Thera [Multivitamin (formulary)] 1 tab PO DAILY 08/31/19 [History] OLANZapine [ZyPREXA] 5 mg PO DAILY 08/31/19 [History] OLANZapine [ZyPREXA] 10 mg PO HS 08/31/19 [History] Pantoprazole Sodium [Protonix] 40 mg PO DAILY 08/31/19 [History] Sertraline [Zoloft] 50 mg PO DAILY 08/31/19 [History] levETIRAcetam [Keppra] 1,500 mg PO BID 08/31/19 [History] Follow up Appointment(s)/Referral(s): Frederic Doyle MD [Primary Care Provider] - 1-2 days Wes Cyr DO [STAFF PHYSICIAN] - 1 Week Discharge Disposition: TRANSFER TO SNF/ECF
[2019-09-02] MEDS ORDERED: DIVALPROEX ER 250 MG TAB.ER.24H PO SCH (09:00)
--- NOTE | 2019-09-02 09:55 | P.PN ---
Progress Note - Text Progress Note Date: 09/02/19 SUBJECTIVE/INTERVAL EVENTS: No acute overnight events. Patient denies any headache, nausea, vomiting, dizziness, worsening weakness, numbness or tingling. PHYSICAL EXAMINATION: VITAL SIGNS: T 97 HR 64 RR 18 BP 117/68 O2 sat 96% on RA GEN.: NAD, mixed receptive and expressive aphasia HEENT: NCAT, sclera without icterus NECK: Supple SKIN AND EXTREMITIES: Warm to touch, no edema NEURO: MENTAL STATUS: Patient alert and oriented to self, place. Unable to understand other orientation questions. Severe dysarthria, repeats often. No right and left disorientation, neglect. CRANIAL NERVES II THROUGH XII: II: Pupils are equal and reactive to light symmetrically. Blinks to threat bilaterally III, IV, : No ptosis. Extraocular movements full. No nystagmus. VII. R facial droop (from previous stroke per daughter) IX, X: Symmetric palate elevation. XI: Shoulder shrug intact. XII: Tongue midline without fasciculation or atrophy. MOTOR: Normal bulk/tone. No pronator drift or tremor. At least antigravity with no drift in b/l UE. RLE with mild drift SENSORY: does not grimace to noxious stimuli in all 4 extremities REFLEXES: 2+ throughout. Toes are downgoing. No clonus. COORDINATION/GAIT: unable to assess DIAGNOSTIC TESTING: LABORATORY: WBC 8.2 Hgb 14.2 Platelet 224 INR 1.0 Na 137 K 3.9 Cl 98 CO2 26 BUN 18 Cr 1.09 Glucose 493 AST 20 ALT 18 AlkPhos 121 Trop <0.012 TSH 1.370 Depaktoe level 15.4 urine toxicology negative Total cholesterol 141 LDL 63 HDL 29 TG 247 A1C 15.7 IMAGING: MRI brain without contrast 09/01/19: There may be some acute ischemic changes in the jah-infarct region in the left parietal lobe increased white matter changes are within this region. Some jah- infarct ischemic changes considered. When the patient is stable, follow-up contrast MRI would be recommended. Additional areas of more chronic appearing ischemic changes within watershed regions of the left and right parietal occipital lobes and within the left frontal parietal regions. Routine EEG 09/01/19: Normal EEG. The sharp waves seen over the left frontotemporal region are epileptiform in nature. The diffuse theta delta range slowing with greater focality of the left frontal temporal region is not epileptiform in nature. These findings indicate the presence of an epileptiform focus involving the left frontotemporal region and can be seen with the presence of a structural abnormality of epileptiform origin involving the corresponding region. These findings also indicate a moderate diffuse cerebral dysfunction with greater focal involvement of the left frontotemporal region. CT Head w/o contrast 08/31/19: Watershed infarct in L parietal-occipital region, age indeterminant, acute to subacute. Additional multifocal bilateral infarcts appear old on CT CTA Head and Neck w/ contrast 08/31/19: There is atherosclerotic plaque formation in approximate 30% stenosis in both proximal internal carotid arteries. No evidence of hemodynamic stenosis. No intracranial angiographic abnormality. TTE 09/01/19: SR. EF 55-60%. RV, LA, RA, LV sizes are normal. Cardiac Telemetry: No atrial arrhythmia observed since admission ASSESSMENT: 59 year-old R-handed man with PMHx of stroke (since about 10 years ago, has had multiple), diabetes, HLD, HTN, bipolar, PTSD, who presents to [facility] for altered mental status. At this time, we do not know patient's previous stroke symptoms to compare today's presentation to, but CT Head showing multiple infarcts bilaterally along with possible [id number] watershed infarct. Patient had been only on ASA at home. Daughter states that no one was able to tell them what his stroke etiology was, but on this admission, patient found with hyperglycemia of 493, which most definitely can still cause multifocal bilateral infarcts if not managed appropriately. Patient's A1C came back at 15.7, and CTA/TTE unremarkable. MRI brain w/o contrast pending. Patient's previous strokes likely due to uncontrolled diabetes. RECOMMENDATIONS: 1. c/w ASA 81mg qday 2. c/w Atorvastatin 80mg qhs 3. Depakote level 15.4 on 08/31/19. Will change depakote medication to extended release 750mg qday. Will continue the depakote 250mg TID dosing for today and discontinue tomorrow. 4. c/w Keppra 1500mg BID 5. PT/OT/ST per protocol 6. Discussed with patient about stroke prevention guidelines. Medication compliance, hypertension/diabetes control, lifestyle changes including no smoking, drinking in moderation, losing weight, exercising, eating healthier 7. Neurology will sign off at this time. Please feel free to contact Neurology again if with additional questions or concerns. 8. Patient needs to follow up with neurologist as outpatient with her 1-2 weeks of discharge. Consider MRI brain w/ contrast as recommended by radiology as outpatient
[2019-09-02 12:26] LABS: Glucose,Whole Blood 232 mg/dL (75-99)
[2019-09-02 17:12] LABS: Glucose,Whole Blood 155 mg/dL (75-99)
[2019-09-02 21:26] LABS: Glucose,Whole Blood 362 mg/dL (75-99)
[2019-09-02] MEDS: ATORVASTATIN 80 MG TAB PO SCH (21:39)
[2019-09-02] MEDS: INSULIN DETEMIR (LEVEMIR) 100 UNIT/ML SYR SQ SCH (21:40)
[2019-09-02] MEDS: OLANZapine 10 MG TAB PO SCH (21:44)
[2019-09-03 06:28] LABS: Glucose,Whole Blood 198 mg/dL (75-99)
[2019-09-03] MEDS: MIDODRINE 5 MG TAB PO SCH ×2 (07:04→12:00)
[2019-09-03] MEDS: INSULIN ASPART (NovoLOG) 100 UNIT/ML VIAL SQ SCH ×2 (07:04→11:58)
[2019-09-03] MEDS: PANTOPRAZOLE 40 MG TABLET PO SCH (08:16)
[2019-09-03] MEDS: MULTIVITAMINS, THERA 1 EACH TAB PO SCH (08:16)
[2019-09-03] MEDS: SERTRALINE 50 MG TAB PO SCH (08:16)
[2019-09-03] MEDS: OLANZapine 5 MG TAB PO SCH (08:16)
[2019-09-03] MEDS: FENOFIBRATE 160 MG TAB PO SCH (08:16)
[2019-09-03] MEDS: ASPIRIN 81 MG PO SCH (08:16)
[2019-09-03] MEDS: levETIRAcetam 500 MG TAB PO SCH (08:16)
[2019-09-03] MEDS: FOLIC ACID 1 MG TAB PO SCH (08:16)
[2019-09-03] MEDS: DIVALPROEX ER 250 MG TAB.ER.24H PO SCH (10:16)
[2019-09-03 11:54] LABS: Glucose,Whole Blood 129 mg/dL (75-99)
[2019-09-03 13:02] VITALS: BP 121/78; PULSE 66; RESP 20; TEMP 97.5
== END 2019-09-03 16:33 | DRG 65 ==
LOC: EC 08:35 → 3SCARD 10:39 → 4MS4W 09-03 07:33
PROVIDERS: ADMIT Family Medicine; ATTEND Family Medicine
DX: I63.9 Cerebral infarction, unspecified (principal); F31.30 Bipolar disorder, current episode depressed, mild or moderate severity, unspecified; I69.351 Hemiplegia and hemiparesis following cerebral infarction affecting right dominant side; R47.01 Aphasia; E11.65 Type 2 diabetes mellitus with hyperglycemia; I69.392 Facial weakness following cerebral infarction; R47.1 Dysarthria and anarthria; I10 Essential (primary) hypertension; E78.5 Hyperlipidemia, unspecified; F43.10 Post-traumatic stress disorder, unspecified; I65.23 Occlusion and stenosis of bilateral carotid arteries; R40.2142 Coma scale, eyes open, spontaneous, at arrival to emergency department; R40.2362 Coma scale, best motor response, obeys commands, at arrival to emergency department; R40.2242 Coma scale, best verbal response, confused conversation, at arrival to emergency department; R29.711 NIHSS score 11; R26.9 Unspecified abnormalities of gait and mobility; F17.210 Nicotine dependence, cigarettes, uncomplicated; Z71.6 Tobacco abuse counseling; Z79.82 Long term (current) use of aspirin; Z79.4 Long term (current) use of insulin; Z79.899 Other long term (current) drug therapy; Z98.52 Vasectomy status; Z82.49 Family history of ischemic heart disease and other diseases of the circulatory system; Z83.3 Family history of diabetes mellitus; Z82.5 Family history of asthma and other chronic lower respiratory diseases; Z81.1 Family history of alcohol abuse and dependence; Z81.2 Family history of tobacco abuse and dependence; Z82.3 Family history of stroke
CPT/HCPCS: 36415; 70450; 70496; 70498; 70551; 71046; 80053; 80061; 80164; 80306; 81003; 82009; 83036; 83605; 84443; 84484; 85025; 85610; 85730; 93005; 93306; 95819; 96360; 96361; 99285